=== PATIENT | female | born 1945 | race Caucasian/White ===

== ENCOUNTER 2017-05-16 17:19 | Emergency (ER) | payer MEDICARE, OTHER ==
[2017-05-16 17:20] VITALS: BMI 31.1
[2017-05-16 18:53] VITALS: RESP 18; O2SAT 98
[2017-05-16] MEDS ORDERED: Sodium Chloride 0.9% 500 ML IV ONE (18:54)
[2017-05-16 19:58] LABS: BASO % 0.6 % (0.0-2.0); EOS % 1.1 % (0.0-4.0); HEMATOCRIT 36.5 % (34.0-47.0); LYMPH # 1.4 K/uL (1.0-4.3); LYMPH % 32.4 % (20.0-40.0); MEAN CELL VOLUME 86.7 fL (81.0-99.0); MEAN CORPUSCULAR HEMOGLOBIN 29.1 pg (27.0-31.0); MEAN CORPUSCULAR HGB CONC 33.5 g/dL (33.0-37.0); MEAN PLATELET VOLUME 9.1 fL (7.2-11.7); MONO # 0.3 K/uL (0.0-0.8); MONO % 7.7 % (0.0-10.0); NRBC % 0.1 % (0.0-2.0); RED CELL DISTRIBUTION WIDTH 14.6 % (11.5-14.5); WHITE BLOOD COUNT 4.3 K/uL (4.8-10.8)
[2017-05-16] MEDS ORDERED: Sodium Chloride 0.9% 1,000 ML ONE (19:59)
[2017-05-16 20:04] LABS: CHLORIDE 103 mmol/L (98-107)
[2017-05-16 20:05] LABS: POTASSIUM 4.1 mmol/L (3.6-5.2); SODIUM 135 mmol/L (132-148)
[2017-05-16 20:07] LABS: ALB/GLOB RATIO 0.9 (1.0-2.1); ALKALINE PHOSPHATASE 133 U/L (38-126); AST/SGOT 55 U/L (14-36); BILIRUBIN,TOTAL 1.2 mg/dL (0.2-1.3); CARBON DIOXIDE 25 mmol/L (22-30); GFR AFRICAN-AMERICAN > 60
[2017-05-16 20:08] LABS: ALT/SGPT 52 U/L (9-52); BLOOD UREA NITROGEN 11 mg/dL (7-17); CALCIUM 8.5 mg/dl (8.6-10.4); GLUCOSE,RANDOM 88 mg/dL (65-105); MAGNESIUM 1.6 mg/dL (1.6-2.3)
--- NOTE | 2017-05-16 21:30 | CT ---
EXAM: CT Head Without Intravenous Contrast EXAM DATE/TIME: 05/16/2017 6:55 PM CLINICAL HISTORY: 72 years old, female; Signs and symptoms; Dizziness TECHNIQUE: Axial computed tomography images of the head/brain without intravenous contrast. All CT scans at this facility use one or more dose reduction techniques, viz.: automated exposure control; ma/kV adjustment per patient size (including targeted exams where dose is matched to indication; i.e. head); or iterative reconstruction technique. COMPARISON: There are no prior studies for comparison. FINDINGS: Brain: There is prominence of sulci gyri and ventricles. There is no midline shift. There is decreased attenuation in periventricular white matter.There are basal ganglia calcifications bilaterally. There are no focal masses. There are no focal hemorrhages. Honeycutt-white differentiation is visualized. Ventricles: See above. Bones: Cranial vault is intact. Soft tissues: unremarkable Sinuses: There is no acute sinusitis. Ears and mastoids: Middle ears and mastoids are unremarkable. Orbits: Orbital contents are unremarkable. IMPRESSION: Mild atrophy and small vessel disease, no bleed
--- NOTE | 2017-05-16 21:49 | C.PDOC ---
Time Seen by Provider: 05/16/17 18:43 Chief Complaint (Nursing): Dizziness/Lightheaded History Per: Patient, Family Onset/Duration Of Symptoms: Days (months), Intermittent Episodes Current Symptoms Are (Timing): Still Present Associated Symptoms Preceding Syncopal Episode: Vertigo Worse With Change In Head Position Possible Causative Factor(s): Vertigo Fall Associated With With Symptoms: No Severity: Moderate Additional History Per: Prior Records - Symptoms Of CVA Recent Head Trauma: No Past Medical History Reviewed: Historical Data, Nursing Documentation, Vital Signs Vital Signs: Last Vital Signs Temp 98.2 F 05/16/17 17:37 Pulse 71 05/16/17 18:00 Resp 18 05/16/17 18:00 BP 174/83 H 05/16/17 18:00 Pulse Ox 98 05/16/17 21:48 - Medical History PMH: Arthritis, Gastritis, HTN, Hypercholesterolemia, Chronic Kidney Disease Surgical History: Endoscopy - [facility] Procedures ENDO RECTUM POLYPECTOMY (03/20/15) Family History: States: Unknown Family Hx - Social History Hx Alcohol Use: No Hx Substance Use: No - Immunization History Hx Tetanus Toxoid Vaccination: No Hx Influenza Vaccination: No Hx Pneumococcal Vaccination: No Review Of Systems Except As Marked, All Systems Reviewed And Found Negative. Constitutional: Negative for: Fever, Weakness ENT: Positive for: Ear Pain (Tinnitus). Negative for: Ear Discharge Cardiovascular: Negative for: Chest Pain Respiratory: Negative for: Shortness of Breath Gastrointestinal: Positive for: Nausea. Negative for: Vomiting, Abdominal Pain , Diarrhea Musculoskeletal: Negative for: Neck Pain Skin: Negative for: Rash Neurological: Positive for: Headache, Dizziness. Negative for: Weakness, Numbness, Change in Speech, Confusion, Seizures, Altered Mental Status Physical Exam - Physical Exam Appears: Non-toxic, No Acute Distress Skin: Normal Color, Warm, Dry, No Rash Head: Atraumatic, Normacephalic Eye(s): bilateral: Normal Inspection, PERRL, EOMI Ear(s): Bilateral: Normal Neck: Normal ROM, Supple Cardiovascular: Rhythm Regular Respiratory: Normal Breath Sounds, No Accessory Muscle Use Gastrointestinal/Abdominal: Soft, No Tenderness Back: No CVA Tenderness Extremity: Normal ROM Neurological/Psych: Oriented x3, Normal Speech, Normal Cognition, Normal Cranial Nerves, No Cerebellar Signs, Normal Motor, Normal Sensation ED Course And Treatment - Laboratory Results Result Diagrams: 05/16/17 19:52 05/16/17 19:52 Lab Interpretation: No Acute Changes ECG: Interpreted By Me, Viewed By Me ECG Rhythm: Sinus Rhythm, R BBB, Nonspecific Changes ECG Interpretation: No Acute Changes Rate From EC O2 Sat by Pulse Oximetry: 98 Pulse Ox Interpretation: Normal - Radiology CXR: Interpreted by Me, Viewed By Me CXR Interpretation: Yes: No Acute Disease - CT Scan/US CT head Other Rad Studies (CT/US): Read By Radiologist, Radiology Report Reviewed CT/US Interpretation: IMPRESSION: Mild atrophy and small vessel disease, no bleed Progress - Interventions Interventions:: Observation - Medications Administered Oral: Other (Meclizine) Intravenous: Antiemetic - Data Reviewed Data Reviewed: Lab, Diagnostic imaging, EKG, Old records - Patient Status Patient status: Completely improved - Continuity of Care Discussed patient case with:: Patient, Family-HIPPA compliant, ED Nurse - Patient Plan Patient Plan: Discharge, F/U with PCP, Continue present meds Disposition Counseled Patient/Family Regarding: Studies Performed, Diagnosis, Need For Followup, Rx Given - Disposition Referrals: Ector Coburn MD [Staff Provider] - Jonah Herring MD [Staff Provider] - Disposition: HOME/ ROUTINE Disposition Time: 21:52 Condition: IMPROVED Additional Instructions: Follow up with an ENT specialist for further evaluation and treatment. Return to the ER if you develop fever, vomiting, trouble walking, worsening of symptoms or if you have any other concerns. Prescriptions: Meclizine [Meclizine*] 25 mg PO Q6 PRN #30 tab PRN Reason: Dizziness Instructions: Vertigo (ED) Forms: [employer] (Mauritian) Print Language: ALBANIAN - Clinical Impression Clinical Impression: Vertigo, Tinnitus
[2017-05-16 22:19] VITALS: BP 154/85; PULSE 72; TEMP 98.5
--- NOTE | 2017-05-17 08:41 | RAD ---
PROCEDURE: CHEST RADIOGRAPH, 1 VIEW HISTORY: Dizziness, cough COMPARISON: None available. FINDINGS: LUNGS: The lungs are clear. PLEURA: No pneumothorax or pleural fluid seen. CARDIOVASCULAR: Normal. OSSEOUS STRUCTURES: No significant abnormalities. VISUALIZED UPPER ABDOMEN: Normal. OTHER FINDINGS: None. IMPRESSION: No active pulmonary disease.
--- NOTE | 2017-05-20 09:38 | CARD ---
APPROVED REPORT EKG Measurement Heart [id number] <Conclusion> Normal sinus rhythm Right bundle branch block Minimal voltage criteria for LVH, may be normal variant Abnormal ECG
== END 2017-05-16 22:18 | disposition home or self-care (01) ==
LOC: C.ER 17:19
DX: R42 Dizziness and giddiness (principal); H93.19 Tinnitus, unspecified ear
CPT/HCPCS: 70450; 71010; 80053; 83735; 84484; 85025; 93005; 96361; 96374; 99285; J2765; J7040

== ENCOUNTER 2018-04-25 12:24 | Emergency (ER) | payer MEDICARE, OTHER ==
[2018-04-25 12:25] VITALS: BMI 31.1
--- NOTE | 2018-04-25 13:50 | C.PDOC ---
History Of Present Illness 73 y/o female with a PMHx of HTN, hypercholesterolemia, and "glaucoma", presents with complaints of lack of vision in the right eye for last week. Began as a cloudiness, and now the last 2 days she reports having no vision. No associated pain or discomfort. Patient reports history of glaucoma, is using drops prescribed by PMD, but does not follow up with ophthalmology. Otherwise she denies any headaches, neurological deficits, nausea, vomiting, dizziness, slurred speech, or other complaints. Case discussed with Dr Coburn who states he does not treat her for glaucoma. Time Seen by Provider: 04/25/18 13:30 Chief Complaint (Nursing): Weakness/Neurological Deficit History Per: Patient History/Exam Limitations: no limitations Onset/Duration Of Symptoms: Days Current Symptoms Are (Timing): Still Present Past Medical History Reviewed: Historical Data, Nursing Documentation, Vital Signs Vital Signs: Last Vital Signs Temp 98.6 F 04/25/18 12:30 Pulse 86 04/25/18 12:30 Resp 20 04/25/18 12:30 BP 121/75 04/25/18 12:30 Pulse Ox 98 04/25/18 14:23 - Medical History PMH: Arthritis, Gastritis, HTN, Hypercholesterolemia, Chronic Kidney Disease Other PMH: Glaucoma Surgical History: Endoscopy - [facility] Procedures ENDO RECTUM POLYPECTOMY (03/20/15) Family History: States: Unknown Family Hx - Social History Hx Alcohol Use: No Hx Substance Use: No - Immunization History Hx Tetanus Toxoid Vaccination: No Hx Influenza Vaccination: No Hx Pneumococcal Vaccination: No Review Of Systems Except As Marked, All Systems Reviewed And Found Negative. Constitutional: Negative for: Fever, Chills Eyes: Positive for: Vision Change (loss of vision to right eye). Negative for: Pain, Conjunctivae Inflammation, Redness Gastrointestinal: Negative for: Nausea, Vomiting Neurological: Negative for: Weakness, Numbness, Change in Speech, Confusion, Altered Mental Status, Headache, Dizziness Physical Exam - Physical Exam Appears: Non-toxic, No Acute Distress Skin: Normal Color, Warm, Dry Head: Atraumatic, Normacephalic Eye(s): bilateral: PERRL, EOMI, Other (Fundoscopic exam: Can visualize fundus on the left eye, cannot on the right eye) Nose: Normal Oral Mucosa: Moist Neck: Supple Chest: Symmetrical Cardiovascular: Rhythm Regular, No Murmur Respiratory: Normal Breath Sounds, No Accessory Muscle Use Extremity: Bilateral: Atraumatic, Normal ROM Neurological/Psych: Oriented x3, Normal Speech, Normal Cranial Nerves, Normal Motor, Normal Sensation ED Course And Treatment - Laboratory Results Result Diagrams: 04/25/18 13:56 04/25/18 13:56 Lab Interpretation: No Acute Changes O2 Sat by Pulse Oximetry: 98 (RA) Pulse Ox Interpretation: Normal - CT Scan/US Head CT Other Rad Studies (CT/US): Read By Radiologist, Radiology Report Reviewed CT/US Interpretation: Accession No. : [id number]. Patient Name / ID : MATTHIAS CRISTINA / [id number]. Exam Date : 04/25/2018 14:02:12 ( Approved ) . Study Comment : Sex / Age : F / 73Y. Creator : Kajal Chan. Dictator : Bartolome Vizcarra MD. Forensic Dna Analyst : International Flight Attendant : Bartolome Vizcarra MD. Approver2 : Report Date : 04/25/2018 14:09:44. My Comment : . Date of service: 04/25/2018. PROCEDURE: CT HEAD WITHOUT CONTRAST. HISTORY: R/O Bleed. COMPARISON: Noncontrast head CT 05/15/2017. TECHNIQUE: Axial computed tomography images were obtained through the head/brain without intravenous contrast. Radiation dose: Total exam DLP = 1091.140 mGy-cm. This CT exam was performed using one or more of the following dose reduction techniques: Automated exposure control, adjustment of the mA and/or kV according to patient size, and/or use of iterative reconstruction technique. FINDINGS: HEMORRHAGE: No intracranial hemorrhage. BRAIN: Normal cortez-white matter differentiation and density are appreciated throughout the cerebrum and cerebellum with the brainstem appearing unremarkable as well. There is no mass effect. There is no suspicious extra-axial fluid collection and the midline brain anatomy appears diffusely unremarkable. VENTRICLES: Unremarkable. No hydrocephalus. CALVARIUM: Unremarkable. PARANASAL SINUSES: Unremarkable as visualized. No significant inflammatory changes. MASTOID AIR CELLS: Unremarkable as visualized. No inflammatory changes. OTHER FINDINGS: None. IMPRESSION: Age related neuro degenerative changes are identified without acute intracranial findings as discussed above. Follow up CT or MRI are available if clinically warranted. Reevaluation Time: 14:25 Reassessment Condition: Unchanged - Physician Consult Information Outcome Of Conversation: Case discussed with Dr Coburn and Dr Wan. Snowmaker will see her in the office now. Medical Decision Making Medical Decision Making: Impression: visual loss, right eye Initial Plan: --CMP --CBC --CT Head 13:[address] Coburn, who states he is not prescribing patient any eye drops -- requests that patient be evaluated by ophthalmology immediately. 13:[address] Wans office, left message. 14:21 Received call back from Dr. Wan. Disposition Counseled Patient/Family Regarding: Studies Performed, Diagnosis, Need For Followup - Disposition Referrals: Fortunato Wan MD [Staff Provider] - Disposition: HOME/ ROUTINE Disposition Time: 14:26 Condition: STABLE Forms: [employer] (Urdu) - Clinical Impression Clinical Impression: Vision loss, right eye - Scribe Statement The provider has reviewed the documentation as recorded by the Scribe (Colette Martin) Provider Attestation: All medical record entries made by the Scribe were at my direction and personally dictated by me. I have reviewed the chart and agree that the record accurately reflects my personal performance of the history, physical exam, medical decision making, and the department course for this patient. I have also personally directed, reviewed, and agree with the discharge instructions and disposition.
[2018-04-25 13:59] LABS: BASO % 0.7 % (0.0-2.0); EOS # 0.1 K/uL (0.0-0.7); EOS % 2.7 % (0.0-4.0); HEMOGLOBIN 12.6 g/dL (11.0-16.0); LYMPH # 1.4 K/uL (1.0-4.3); LYMPH % 26.4 % (20.0-40.0); MEAN CELL VOLUME 86.9 fL (81.0-99.0); MEAN CORPUSCULAR HEMOGLOBIN 29.8 pg (27.0-31.0); MEAN CORPUSCULAR HGB CONC 34.3 g/dL (33.0-37.0); MEAN PLATELET VOLUME 8.4 fL (7.2-11.7); MONO # 0.6 K/uL (0.0-0.8); NEUT # 3.1 K/uL (1.8-7.0); NEUT % 59.2 % (50.0-75.0); RBC 4.23 Mil/uL (3.80-5.20); RED CELL DISTRIBUTION WIDTH 14.4 % (11.5-14.5); WHITE BLOOD COUNT 5.3 K/uL (4.8-10.8)
[2018-04-25 14:11] LABS: ALBUMIN 3.6 g/dL (3.5-5.0); ALT/SGPT 35 U/L (9-52); AST/SGOT 48 U/L (14-36); BLOOD UREA NITROGEN 13 mg/dL (7-17); CALCIUM 8.7 mg/dl (8.6-10.4); GFR NON-AFRICAN AMERICAN > 60
--- NOTE | 2018-04-25 14:16 | CT ---
Date of service: 04/25/2018 PROCEDURE: CT HEAD WITHOUT CONTRAST. HISTORY: R/O Bleed COMPARISON: Noncontrast head CT 05/15/2017. TECHNIQUE: Axial computed tomography images were obtained through the head/brain without intravenous contrast. Radiation dose: Total exam DLP = 1091.140 mGy-cm. This CT exam was performed using one or more of the following dose reduction techniques: Automated exposure control, adjustment of the mA and/or kV according to patient size, and/or use of iterative reconstruction technique. FINDINGS: HEMORRHAGE: No intracranial hemorrhage. BRAIN: Normal cortez-white matter differentiation and density are appreciated throughout the cerebrum and cerebellum with the brainstem appearing unremarkable as well. There is no mass effect. There is no suspicious extra-axial fluid collection and the midline brain anatomy appears diffusely unremarkable. VENTRICLES: Unremarkable. No hydrocephalus. CALVARIUM: Unremarkable. PARANASAL SINUSES: Unremarkable as visualized. No significant inflammatory changes. MASTOID AIR CELLS: Unremarkable as visualized. No inflammatory changes. OTHER FINDINGS: None. IMPRESSION: Age related neuro degenerative changes are identified without acute intracranial findings as discussed above. Follow up CT or MRI are available if clinically warranted.
[2018-04-25 14:32] VITALS: BP 182/84; PULSE 75; RESP 13; O2SAT 99
[2018-04-25 14:38] VITALS: TEMP 98.5
== END 2018-04-25 14:35 | disposition home or self-care (01) ==
LOC: C.ER 12:24
DX: H54.7 Unspecified visual loss (principal)